=== PATIENT | female | born 1990 | race African-American/Black ===

== ENCOUNTER 2016-05-05 18:46 | Emergency (ER) | payer OTHER ==
[~2016-05-05] VITALS: Ht 157.5 cm; Wt 77.1 kg
[~2016-05-05 18:46] MED LIST: AMOXICILLIN500 M3 PO; AUGMENTIN 875 M1 TAB PO; BACTRIM DS 8001 TAB PO; BACTRIM DS TAB1 EACH PO; BLM PO; DOXYCYCLINE MO100 MG PO; IBUPROFEN800 MG PO; MACROBID100 MG PO; MEDROL DOSEPAK1 PAC PO; MOTRIN800 MG PO; PERCOCET 5-3251 EACH PO; PERCOCET MONOGRA5 MG PO; PYRIDIUM100 M1 PO; ULTRACET 325 MG1 TAB PO; VIBRAMYCIN 100100 MG PO; ZOFRAN4 M1 SL
[2016-05-05 19:20] VITALS: BP 128/85
--- NOTE | 2016-05-05 19:47 | ED THROAT/DENTAL COMPLAINT ---
History of Present Illness General Chief Complaint: Sore Throat, Dental Pain Stated Complaint: PT HAS A ABSCESS ON THE LEFT SIDE OF FACE Source: patient, old records Exam Limitations: no limitations Vital Signs & Intake/Output Vital Signs & Intake/Output Vital Signs Date Time Temp Pulse Resp B/P Pulse O2 O2 Flow FiO2 Ox Delivery Rate 05/05 1919 98.2 70 20 128/85 98 Room Air Allergies Coded Allergies: NO KNOWN ALLERGIES (05/05/16) Reconcile Medications Amoxicillin 500 MG TABLET 1 TAB PO BID abscess Amoxicillin/Potassium Clav (Augmentin 875-125 Tablet) 875 MG-125 MG TABLET 1 TAB PO BID dental Oxycodone HCl/Acetaminophen (Percocet 5-325 MG Tablet) 5 MG-325 MG TABLET 1 TAB PO TID PRN pain Oxycodone HCl/Acetaminophen (Percocet 5-325 MG Tablet) 5 MG-325 MG TABLET 1 TAB PO BID pain Sulfamethoxazole/Trimethoprim (Bactrim Ds Tablet) 800 MG-160 MG TABLET 1 TAB PO BID abscess Triage Note: TRIAGE: PT TO ER C/C ?DENTAL ABSCESS TO L SIDE OF FACE. ONSET THIS MORNING. TAKING TYLENOL WITH NO RELIEF NOTED. Triage Nurses Notes Reviewed? yes Onset: Abrupt Duration: day(s): (1), constant Timing: recent history Injury Environment: home Severity: moderate Severity Numbers: 6 Modifying Factors: Worsens With: eating. Associated Symptoms: denies : No Patient currently breastfeeds: No HPI: 26-year-old female presents to emergency room complaining of left lower dental pain for the past 1 day. The patient has a history of a cracked tooth on that side however states since this morning and has been bothering her and has noted left-sided facial swelling. She denies any difficulty swallowing cough fever or chills. She's been taking Tylenol today without improvement she is not follow- up with a dentist. She denies any other dental pain there are no other modifying factors or associated symptoms otherwise. (TOBI CANDELARIA,JOSELYN) Past History Travel History Traveled to [place] past 21 day No Medical History Any Pertinent Medical History? 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 No (JOSELYN MUELLER) Review of Systems Review of Systems Constitutional: Reports: see HPI. All Other Systems: Reviewed and Negative Comments Review of systems: See HPI, All other systems negative. Constitutional, no chills no fever, no malaise no weight loss HEENT: No visual changes no sore throat no congestion, no ear pain Cardiovascular: No chest pain , no palpitation , no orthopnea no ankle swelling Skin, no jaundice no rashes, no change in skin Respiratory: No dyspnea no cough no sputum no hemoptysis GI: No nausea no vomiting, no diarrhea, no bloating/constipation : No dysuria No hematuria, no frequency, no discharge Muscle skeletal: No joint pain, no joint swelling, no back pain, no neck pain, Neurologic: No numbness no confusion, no headache Psych: No stress Heme/endocrine: No bruising no bleeding Immunology: No lymphadenopathy (JOSELYN MUELLER) Physical Exam Physical Exam General Appearance: well developed/nourished, no apparent distress Mouth/Throat: normal mouth inspection, pharynx normal, dental tenderness Comments: Well-developed well-nourished patient in no apparent distress. Head/Face: Atraumatic, no maxillary/frontal sinus tenderness, no facial swelling Eyes: PERRL, EOMI, no conjunctival injection. Ear:External auditory canals clear, Nose: atraumatic.Normal inspection: No bleeding Throat: Moist mucous membranes.Pharynx normal. No pharyngeal erythema/exudate seen. No stridor/drooling or assymetry. No swelling or edema. Left lower dental tenderness cracked tooth no gingival swelling or abscess noted Neck: Supple, no lymphadenopathy, FROM Back: FROM, Nontender Cardiovascular: Regular rate and rhythms no murmurs rubs or gallops, Respiratory: No respiratory distress. Patient speaking in full complete sentences. Breath sounds clear to auscultation bilaterally: NO W/R/R Extremities: full range of motion Neuro: Alert and oriented x3 Skin: Warm & dry;No appreciable rash on exposed skin Psych: Mood affect normal, normal memory normal judgment. Core Measures ACS in differential dx? No Severe Sepsis Present: No Septic Shock Present: No (JOSELYN MUELLER) Progress Differential Diagnosis: aspirated tooth, carious tooth, odontogenic abscess, fatoumata-tonsillar abscess, pharyngeal for. body, stomatitis/gingivitis, strep pharyngitis, tooth fracture Plan of Care: Prescription for Augmentin Percocet provided along with dental clinic list she feels comfortable clinically for discharge (JOSELYN MUELLER) Departure Departure Time of Disposition: 1953 Disposition: HOME OR SELF CARE Condition: Stable Clinical Impression Primary Impression: Toothache Referrals: UNKNOWN (PCP/Family) Additional Instructions: augmentin as directed, percocet for breakthrough pain- use caution as ths is a narcotic and highly addictive. no driving or drinking alcohol while taking. these were sent to your pharmacy. Departure Forms: Customer Survey General Discharge Information Prescriptions: Current Visit Scripts Amoxicillin/Potassium Clav (Augmentin 875-125 Tablet) 1 TAB PO BID #14 TAB Oxycodone HCl/Acetaminophen (Percocet 5-325 MG Tablet) 1 TAB PO BID #8 TAB (JOSELYN MUELLER) PA/COVER ASSEMBLER Co-Sign Statement Statement: ED Attending supervision documentation- [] I saw and evaluated the patient. I have also reviewed all the pertinent lab results and diagnostic results. I agree with the findings and the plan of care as documented in the PA's/COVER ASSEMBLER's documentation. x I have reviewed the ED Record and agree with the PA's/COVER ASSEMBLER's documentation. [] Additions or exceptions (if any) to the PAs/COVER ASSEMBLER's note and plan are summarized below: [] (ROSALIO CLINE,SUJATHA)
[2016-05-05] MEDS ORDERED: AUGMENTIN 875-1 EACH PO (19:56)
[2016-05-05] MEDS ORDERED: PERCOCET 5-3251 EACH PO (19:56)
== END 2016-05-05 20:06 ==
LOC: ERH 18:46
DX: K08.89 Other specified disorders of teeth and supporting structures (principal)

== ENCOUNTER 2016-07-15 19:34 | Emergency (ER) | payer OTHER ==
[~2016-07-15 19:34] MED LIST changes: +AUGMENTIN 875-1 EACH PO
[2016-07-15 19:42] VITALS: BP 125/85
--- NOTE | 2016-07-15 20:16 | ED THROAT/DENTAL COMPLAINT ---
History of Present Illness General Chief Complaint: Sore Throat, Dental Pain Stated Complaint: PT HAS A ABSCESS ON THE LEFT SIDE OF THE FACE Source: patient Exam Limitations: no limitations Vital Signs & Intake/Output Vital Signs & Intake/Output Vital Signs Date Time Temp Pulse Resp B/P Pulse O2 O2 Flow FiO2 Ox Delivery Rate 07/15 1941 98.0 64 20 125/85 96 Room Air ED Intake and Output 07/16 0000 07/15 1200 Intake Total 0 Output Total Balance 0 Intake, Oral 0 Allergies Coded Allergies: NO KNOWN ALLERGIES (05/05/16) Reconcile Medications Amoxicillin 500 MG TABLET 1 TAB PO BID abscess Amoxicillin/Potassium Clav (Augmentin 875-125 Tablet) 875 MG-125 MG TABLET 1 TAB PO BID dental infection Amoxicillin/Potassium Clav (Augmentin 875-125 Tablet) 875 MG-125 MG TABLET 1 TAB PO BID dental Ibuprofen 800 MG TABLET 1 TAB PO TID PRN pain Oxycodone HCl/Acetaminophen (Percocet 5-325 MG Tablet) 5 MG-325 MG TABLET 1 TAB PO 4XDP PRN PAIN six...[id number] Oxycodone HCl/Acetaminophen (Percocet 5-325 MG Tablet) 5 MG-325 MG TABLET 1 TAB PO TID PRN pain Oxycodone HCl/Acetaminophen (Percocet 5-325 MG Tablet) 5 MG-325 MG TABLET 1 TAB PO BID pain Sulfamethoxazole/Trimethoprim (Bactrim Ds Tablet) 800 MG-160 MG TABLET 1 TAB PO BID abscess Triage Note: PER PT ABSCESS TO MOUTH X 2 MONTHS BUT TODAY CANT SLEEP. NO OBVIOUS SWELLING. LMP 3 DAYS AGO Triage Nurses Notes Reviewed? yes Onset: Gradual Duration: day(s): Timing: recent history Injury Environment: home Severity: mild Modifying Factors: Worsens With: movement. Associated Symptoms: LEFT LOWER DENTAL PAIN : No Patient currently breastfeeds: No HPI: 26 yo woman left lower jaw x 1 day. "I think I have an infection... my gum feels swollen." She notes no difficulty swallowing or speaking. She has no fever, chills, nausea, vomiting. She is otherwise well. Past History Travel History Traveled to [place] past 21 day No Medical History Any Pertinent Medical History? 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 No Review of Systems Review of Systems Constitutional: Reports: no symptoms. EENTM: Reports: no symptoms. Respiratory: Reports: no symptoms. Cardiovascular: Reports: no symptoms. GI: Reports: no symptoms. Genitourinary: Reports: no symptoms. Musculoskeletal: Reports: no symptoms. Skin: Reports: no symptoms. Neurological/Psychological: Reports: no symptoms. Hematologic/Endocrine: Reports: no symptoms. Immunologic/Allergic: Reports: no symptoms. All Other Systems: Reviewed and Negative Physical Exam Physical Exam General Appearance: well developed/nourished, mild distress Head: atraumatic, normal appearance Eyes: Bilateral: normal appearance. Ears: Bilateral: canal normal. Nose: normal inspection Mouth/Throat: normal mouth inspection, pharynx normal, dental tenderness Neck: normal inspection Core Measures ACS in differential dx? No Severe Sepsis Present: No Septic Shock Present: No Progress Differential Diagnosis: left lower jaw dental tenderness and swelling. Plan of Care: abx, pain meds... pt referred to dental. Departure Departure Disposition: HOME OR SELF CARE Condition: Stable Clinical Impression Primary Impression: Dental abscess Referrals: NAGELES KENYON APRN (PCP/Family) Departure Forms: Customer Survey General Discharge Information Prescriptions: Current Visit Scripts Oxycodone HCl/Acetaminophen (Percocet 5-325 MG Tablet) 1 TAB PO 4XDP PRN PAIN #6 TAB six...[id number] Amoxicillin/Potassium Clav (Augmentin 875-125 Tablet) 1 TAB PO BID #20 TAB Ibuprofen 1 TAB PO TID PRN pain #30 TAB
[2016-07-15] MEDS ORDERED: PERCOCET 5-3251 EACH PO (20:19)
[2016-07-15] MEDS ORDERED: IBUPROFEN800 M1 PO (20:20)
[2016-07-15] MEDS ORDERED: AUGMENTIN 875-1 EACH PO (20:20)
== END 2016-07-15 20:21 ==
LOC: ERH 19:34
DX: K04.7 Periapical abscess without sinus (principal)

== ENCOUNTER 2016-08-14 05:21 | Emergency (ER) | payer OTHER ==
[~2016-08-14] VITALS: Ht 157.5 cm; Wt 76.2 kg
[~2016-08-14 05:21] MED LIST changes: +IBUPROFEN800 M1 PO
[2016-08-14 05:43] VITALS: BP 143/97
--- NOTE | 2016-08-14 05:59 | ED THROAT/DENTAL COMPLAINT ---
History of Present Illness General Chief Complaint: Sore Throat, Dental Pain Stated Complaint: TOOTHACHE, ? ABCESS Source: patient Exam Limitations: no limitations Vital Signs & Intake/Output Vital Signs & Intake/Output Vital Signs Date Time Temp Pulse Resp B/P B/P Pulse O2 O2 Flow FiO2 Mean Ox Delivery Rate 08/14 0543 98.0 80 18 143/97 97 Room Air Allergies Coded Allergies: No Known Allergies (08/14/16) Reconcile Medications Amoxicillin 500 MG TABLET 1 TAB PO BID abscess Amoxicillin/Potassium Clav (Augmentin 875-125 Tablet) 875 MG-125 MG TABLET 1 TAB PO BID dental infection Amoxicillin/Potassium Clav (Augmentin 875-125 Tablet) 875 MG-125 MG TABLET 1 TAB PO BID dental Clindamycin HCl 150 MG CAPSULE 3 CAP PO TID INFECTION Ibuprofen 800 MG TABLET 1 TAB PO TID PRN pain Oxycodone HCl/Acetaminophen (Percocet 5-325 MG Tablet) 5 MG-325 MG TABLET 1 TAB PO Q4-6 PRN BREAKTHROUGH PAIN Oxycodone HCl/Acetaminophen (Percocet 5-325 MG Tablet) 5 MG-325 MG TABLET 1 TAB PO 4XDP PRN PAIN six...[id number] Oxycodone HCl/Acetaminophen (Percocet 5-325 MG Tablet) 5 MG-325 MG TABLET 1 TAB PO TID PRN pain Oxycodone HCl/Acetaminophen (Percocet 5-325 MG Tablet) 5 MG-325 MG TABLET 1 TAB PO BID pain Sulfamethoxazole/Trimethoprim (Bactrim Ds Tablet) 800 MG-160 MG TABLET 1 TAB PO BID abscess Triage Note: PT TO ED FOR L SIDED TOOTHACHE/ABCESS X "FEW WEEKS" WAS PRESCRIBED ABX, FINISHED ABX LAST WEEK. PAIN 10/10. DENIES FEVERS. Triage Nurses Notes Reviewed? yes Onset: Abrupt Duration: week(s): (1) Timing: recent history Injury Environment: home Severity: mild, moderate No Modifying Factors: none Associated Symptoms: facial swelling : No Patient currently breastfeeds: No HPI: This is a 26-year-old female who presents to the ER for chief complaint of persistent left jaw pain and swelling. She is status post a course of antibiotics that finished one and half weeks ago. She denies any fevers. She states she was waiting for the swelling go down her jaw to follow-up with dental to have the tooth extracted. She's been taking ibuprofen and tramadol with minimal relief. Last use ibuprofen at 4:00 this morning. Past History Travel History Traveled to [place] past 21 day No Medical History Any Pertinent Medical History? 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 No Review of Systems Review of Systems Constitutional: Denies: chills, fever. EENTM: Reports: mouth pain, tooth pain. Respiratory: Denies: hemoptysis, short of breath. Cardiovascular: Denies: chest pain. GI: Denies: abdominal pain. Genitourinary: Reports: no symptoms. Musculoskeletal: Reports: no symptoms. Skin: Reports: no symptoms. Neurological/Psychological: Reports: no symptoms. Hematologic/Endocrine: Denies: bruising, bleeding, polyuria, polydipsia. Immunologic/Allergic: Reports: no symptoms. All Other Systems: Reviewed and Negative Physical Exam Physical Exam General Appearance: well developed/nourished, alert, awake, mild distress Head: atraumatic, normal appearance Eyes: Bilateral: PERRL. Ears: Bilateral: canal normal, Tympanic normal. Nose: normal inspection Mouth/Throat: POOR DENTITION, NO ABSCESS LEFT MAXILLA TENDERNESS AND SWELLING Neck: normal inspection, supple, trachea midline Cardiovascular/Respiratory: normal breath sounds Neurologic/Psych: no motor/sensory deficits, awake, alert, oriented x 3 Core Measures ACS in differential dx? No Severe Sepsis Present: No Septic Shock Present: No Progress Differential Diagnosis: carious tooth, Ludwigs angina, odontogenic abscess, tooth fracture Plan of Care: ABX, DENTAL FOLLOW UP Departure Departure Time of Disposition: 603 Disposition: HOME OR SELF CARE Condition: Stable Clinical Impression Primary Impression: Infected dental carries Referrals: ANGELES KENYON APRN (PCP/Family) Additional Instructions: Take the antibiotic and pain medication as directed. Continue ibuprofen as needed. Follow-up with list of the dental clinics provided. Departure Forms: Customer Survey General Discharge Information Prescriptions: Current Visit Scripts Clindamycin HCl 3 CAP PO TID #63 CAP Oxycodone HCl/Acetaminophen (Percocet 5-325 MG Tablet) 1 TAB PO Q4-6 PRN BREAKTHROUGH PAIN #10 TAB
[2016-08-14] MEDS ORDERED: CLINDAMYCIN HC150 M1 PO (06:04)
[2016-08-14] MEDS ORDERED: PERCOCET 5-3251 EACH PO (06:04)
== END 2016-08-14 06:08 ==
LOC: ERH 05:21
DX: K02.9 Dental caries, unspecified (principal)

== ENCOUNTER 2016-10-04 10:17 | Emergency (ER) | payer OTHER ==
[~2016-10-04] VITALS: Ht 157.5 cm; Wt 77.1 kg
[~2016-10-04 10:17] MED LIST changes: +CLINDAMYCIN HC150 M1 PO
[2016-10-04 10:19] VITALS: BP 144/86
[2016-10-04] MEDS ORDERED: PERCOCET 5-3251 EACH PO (10:51)
[2016-10-04] MEDS ORDERED: AMOXICILLIN875 M1 PO (10:51)
[2016-10-04] MEDS ORDERED: IBUPROFEN600 M1 PO (10:51)
--- NOTE | 2016-10-04 11:02 | ED THROAT/DENTAL COMPLAINT ---
History of Present Illness General Chief Complaint: Sore Throat, Dental Pain Stated Complaint: DENATL PAIN Source: patient, old records Exam Limitations: no limitations Vital Signs & Intake/Output Vital Signs & Intake/Output Vital Signs Date Time Temp Pulse Resp B/P B/P Pulse O2 O2 Flow FiO2 Mean Ox Delivery Rate 10/04 1019 97.5 60 18 144/86 100 Room Air Allergies Coded Allergies: No Known Allergies (08/14/16) Reconcile Medications Amoxicillin 500 MG TABLET 1 TAB PO BID abscess Amoxicillin 875 MG TABLET 1 TAB PO BID dental caries Amoxicillin/Potassium Clav (Augmentin 875-125 Tablet) 875 MG-125 MG TABLET 1 TAB PO BID dental infection Amoxicillin/Potassium Clav (Augmentin 875-125 Tablet) 875 MG-125 MG TABLET 1 TAB PO BID dental Clindamycin HCl 150 MG CAPSULE 3 CAP PO TID INFECTION Ibuprofen 800 MG TABLET 1 TAB PO TID PRN pain Ibuprofen 600 MG TABLET 1 TAB PO Q6PRN PRN pain with food Oxycodone HCl/Acetaminophen (Percocet 5-325 MG Tablet) 5 MG-325 MG TABLET 1 TAB PO Q4-6 PRN BREAKTHROUGH PAIN Oxycodone HCl/Acetaminophen (Percocet 5-325 MG Tablet) 5 MG-325 MG TABLET 1 TAB PO 4XDP PRN PAIN six...[id number] Oxycodone HCl/Acetaminophen (Percocet 5-325 MG Tablet) 5 MG-325 MG TABLET 1 TAB PO TID PRN pain Oxycodone HCl/Acetaminophen (Percocet 5-325 MG Tablet) 5 MG-325 MG TABLET 1 TAB PO BID pain Oxycodone HCl/Acetaminophen (Percocet 5-325 MG Tablet) 5 MG-325 MG TABLET 1 TAB PO Q6P PRN severe pain Sulfamethoxazole/Trimethoprim (Bactrim Ds Tablet) 800 MG-160 MG TABLET 1 TAB PO BID abscess Triage Note: PT TO ED FOR DENTAL PAIN SINCE LAST NIGHT. Triage Nurses Notes Reviewed? yes Onset: Gradual Duration: week(s): Timing: recent history Severity: moderate Modifying Factors: Worsens With: cold therapy, eating. : No Patient currently breastfeeds: No HPI: 26-year-old female presents to emergency department complaining of dental pain. Patient states that she has had chronic dental pain on her left lower jaw due to broken tooth and she was seen a dentist for this however was not able to have tooth pulled due to infection. Now she is complaining of right upper tooth pain and states that she has another broken tooth since this week. She states that pain is significantly worse when she eats or drinks especially any cold liquids. She denies fevers, chills, swollen gums, swallowing problems, cough, sore throat. She states that Motrin does not relieve her pain. (AKHIL EDDY PA-C) Past History Travel History Traveled to [place] past 21 day No Medical History Any Pertinent Medical History? 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 No (AKHIL EDDY PA-C) Review of Systems Review of Systems Constitutional: Reports: no symptoms. EENTM: Reports: see HPI. Respiratory: Reports: no symptoms. Cardiovascular: Reports: no symptoms. GI: Reports: no symptoms. Genitourinary: Reports: no symptoms. Musculoskeletal: Reports: no symptoms. Skin: Reports: no symptoms. Neurological/Psychological: Reports: no symptoms. Hematologic/Endocrine: Reports: no symptoms. Immunologic/Allergic: Reports: no symptoms. All Other Systems: Reviewed and Negative (AKHIL EDDY PA-C) Physical Exam Physical Exam General Appearance: well developed/nourished, no apparent distress, alert, awake Head: atraumatic, normal appearance Eyes: Bilateral: normal appearance, EOMI. Ears: Bilateral: other (HEARING IS GROSSLY NORMAL). Nose: normal inspection Mouth/Throat: pharynx normal, SIGNIFICANT CAVITY OF LEFT LOWER MOLAR AND SMALLER CAVITY OF RIGHT UPPER MOLAR, TONSILS WITHOUT ERYTHEMA OR EXUDATE, GINGIVA IS NONTENDER, NO SWELLING Neck: normal inspection, supple, full range of motion Cardiovascular/Respiratory: no respiratory distress Back: normal inspection, normal range of motion Neurologic/Psych: awake, alert, oriented x 3 Skin: intact, normal color Core Measures ACS in differential dx? No Severe Sepsis Present: No Septic Shock Present: No (AKHIL EDDY PA-C) Progress Differential Diagnosis: aspirated tooth, carious tooth, Ludwigs angina, odontogenic abscess, fatoumata-tonsillar abscess, strep pharyngitis, tooth fracture Plan of Care: Patient is in no acute distress, she is nontoxic appearing, no evidence of significant infection on physical exam. The patient is requesting pain medication. She has recently been to the emergency department for similar complaints with requests for pain medication. Patient was discussed with Dr. Madera. The patient will take full course of antibiotics for prevention of dental infection. She'll follow-up with her dentist for further care and possible tooth extraction, she states she will call today to make an appointment. The patient is in agreement with the plan of care. (AKHIL EDDY PA-C) Departure Departure Disposition: HOME OR SELF CARE Condition: Stable Clinical Impression Primary Impression: Chronic dental pain Referrals: ANGELES KENYON APRN (PCP/Family) Additional Instructions: Take Motrin as prescribed as needed for your dental pain. Take full course of antibiotics to prevent further dental infection. Call today to make an appointment with your dentist for further dental care. Let your primary care doctor know that you were seen and evaluated here. Follow-up with your primary care doctor this week. Departure Forms: Customer Survey General Discharge Information Prescriptions: Current Visit Scripts Amoxicillin 1 TAB PO BID #20 TAB Ibuprofen 1 TAB PO Q6PRN PRN pain #50 TAB with food Oxycodone HCl/Acetaminophen (Percocet 5-325 MG Tablet) 1 TAB PO Q6P PRN severe pain #15 TAB (AKHIL EDDY PA-C) PA/PUNCH HAND Co-Sign Statement Statement: ED Attending supervision documentation- I saw and evaluated the patient. I have also reviewed all the pertinent lab results and diagnostic results. I agree with the findings and the plan of care as documented in the PA's/PUNCH HAND's documentation. X I have reviewed the ED Record and agree with the PA's/PUNCH HAND's documentation. [] Additions or exceptions (if any) to the PAs/PUNCH HAND's note and plan are summarized below: [] (ROSALIO CLINE,SUJATHA)
== END 2016-10-04 11:15 ==
LOC: ERH 10:17
DX: G89.29 Other chronic pain (principal); K08.89 Other specified disorders of teeth and supporting structures

== ENCOUNTER 2017-08-01 07:36 | Emergency (ER) | payer OTHER ==
[~2017-08-01] VITALS: Ht 157.5 cm; Wt 70.3 kg
[~2017-08-01 07:36] MED LIST changes: +AMOXICILLIN875 M1 PO; +GUAIFEN-CODEIN118 M1 PO; +IBUPROFEN600 M1 PO; +TRAMADOL HCL50 M1 PO; +ULTRAM50 M1 PO; +ZITHROMAX250 M2 PO
[2017-08-01 07:39] VITALS: BP 134/85
[2017-08-01] MEDS ORDERED: IBUPROFEN600 M1 PO (07:52)
[2017-08-01] MEDS ORDERED: BROMFED DM COU118 M1 PO (07:52)
--- NOTE | 2017-08-01 07:54 | ED THROAT/DENTAL COMPLAINT ---
History of Present Illness General Chief Complaint: Upper Respiratory Sx/Fever Stated Complaint: COUGH,SORE THROAT,CHEST CONGESTION Source: patient Exam Limitations: no limitations Vital Signs & Intake/Output Vital Signs & Intake/Output Vital Signs Date Time Temp Pulse Resp B/P B/P Pulse O2 O2 Flow FiO2 Mean Ox Delivery Rate 08/01 0739 96.4 87 20 134/85 99 Room Air Allergies Coded Allergies: No Known Allergies (08/14/16) Reconcile Medications Amoxicillin/Potassium Clav (Augmentin 875-125 Tablet) 875 MG-125 MG TABLET 1 TAB PO BID dental infection Azithromycin (Zithromax) 250 MG TABLET 1 DP PO AD uri 2 the first day followed by 1 for days 2-5 Codeine Phosphate/Guaifenesi (Guaifen-Codeine 100-10 MG/5 Ml) 10 MG-100 MG/5 ML LIQUID 10 ML PO Q6HR PRN COUGH Ibuprofen 600 MG TABLET 1 TAB PO Q6PRN PRN pain with food Ibuprofen 600 MG TABLET 1 TAB PO TID PRN pain with food Sulfamethoxazole/Trimethoprim (Bactrim Ds Tablet) 800 MG-160 MG TABLET 1 TAB PO BID INFECTION Tramadol HCl (Ultram) 50 MG TABLET 1-2 TAB PO Q6PRN PRN severe pain Tramadol HCl 50 MG TABLET 1 TAB PO BIDP PRN severe pain Triage Note: PT TO ED C/O SORE THROAT SINCE YESTERDAY. AFEBRILE. C/O FEELING SOB. RA SATS 99%, NO OBVIOUS RESP DISTRESS NOTED. Triage Nurses Notes Reviewed? yes Onset: Gradual Duration: hour(s):, constant, continues in ED, getting worse Severity: severe : No Patient currently breastfeeds: No HPI: Patient presents for evaluation of a cough sore throat and chest congestion and nasal congestion beginning last night. Patient is also experiencing a sharp right-sided chest pain with coughing. She denies any associated fever, phlegm production, rash, vomiting, diarrhea, ill contacts or recent travel. Although patient denies shortness of breath she states sometimes she has trouble breathing because of the pain in her throat. She tried NyQuil without significant relief. Past History Travel History Traveled to [place] past 21 day No Medical History Any Pertinent Medical History? see below for history Neurological: NONE EENT: NONE Cardiovascular: NONE Respiratory: NONE Gastrointestinal: NONE Hepatic: NONE Renal: NONE Musculoskeletal: NONE Psychiatric: NONE Endocrine: NONE Blood Disorders: NONE Cancer(s): NONE [employer]/Reproductive: NONE History of MRSA: No History of VRE: No History of CDIFF: No Surgical History Surgical History: appendectomy Psychosocial History Who do you live with Sister Services at Home None What is your primary language [place] Tobacco Use: Never used ETOH Use: denies use Illicit Drug Use: denies illicit drug use Family History Hx Contributory? No Review of Systems Review of Systems Constitutional: Reports: no symptoms. EENTM: Reports: see HPI. Respiratory: Reports: see HPI. Cardiovascular: Reports: no symptoms. GI: Reports: no symptoms. Genitourinary: Reports: no symptoms. Musculoskeletal: Reports: no symptoms. Skin: Reports: no symptoms. Neurological/Psychological: Reports: no symptoms. Hematologic/Endocrine: Reports: no symptoms. Immunologic/Allergic: Reports: no symptoms. All Other Systems: Reviewed and Negative Physical Exam Physical Exam Mouth/Throat: see below Comments: Gen.: Well-nourished, well-developed, no acute respiratory distress. Head: Normocephalic, atraumatic. Eyes: Normal inspection bilaterally Ears: Normal inspection bilaterally Nose: Normal inspection Throat/mouth : Moist mucosa, no oropharyngeal erythema soft tissue swelling or exudates, managing secretions well Neck: Supple, full range of motion, no goiter, neutral position Heart: Regular rate and rhythm, no murmurs rubs or gallops Lungs: Clear to auscultation bilaterally with normal air entry Chest: Nontender Back: Normal range of motion Abdomen: Soft, nontender, nondistended, normal bowel sounds Extremities: Normal range of motion grossly, equal radial pulses, no cyanosis clubbing or edema Neurologic: Cranial nerves grossly intact, speech is clear Skin: warm and dry, no rashes of the face or extremities Psychiatric: Calm, cooperative, no apparent delusions or hallucinations Lymphatic: Mildly tender anterior cervical lymphadenopathy Core Measures ACS in differential dx? No Sepsis Present: No Sepsis Focused Exam Completed? No Progress Differential Diagnosis: epiglottitis, odontogenic abscess, fatoumata-tonsillar abscess, strep pharyngitis, viral syndrome Plan of Care: Symptomatic care Departure Departure Disposition: HOME OR SELF CARE Condition: Stable Clinical Impression Primary Impression: Viral pharyngitis Referrals: Unknown (PCP/Family) Additional Instructions: Ibuprofen 600 mg every 6 hours as needed for sore throat pain and fever or muscle aches chills or headache. Bromfed as needed for congestion or cough. Maintain a good fluid intake. Follow-up with your primary care physician if not improved in the next 7-10 days. Return if any concerns or sudden worsening. Thank you for choosing the [facility] for your care. It was a pleasure to serve you today. Kaushal Nevarez M.D. [facility] Departure Forms: Customer Survey General Discharge Information Prescriptions: Current Visit Scripts Ibuprofen 1 TAB PO Q6P PRN fever,pain #20 TAB with food Brompheniramine/Pseudoephed/Dm (Bromfed Dm Cough Syrup) 5-10 ML PO Q6 PRN PRN cough/congestion #120 ML
[2017-08-20] MEDS ORDERED: PERCOCET 5-3251 EACH PO (15:26)
[2017-08-20] MEDS ORDERED: AUGMENTIN 875-1 EACH PO (15:26)
[2017-11-10] MEDS ORDERED: ANBESOL9 G1 TOP (04:09)
[2017-11-10] MEDS ORDERED: IBUPROFEN600 M1 PO (04:09)
[2017-11-10] MEDS ORDERED: PERCOCET 5-3251 EACH PO (04:09)
[2017-11-10] MEDS ORDERED: AMOXICILLIN500 M3 PO (04:09)
[2017-12-08] MEDS ORDERED: TRAMADOL HCL50 M1 PO (09:24)
[2017-12-08] MEDS ORDERED: KEFLEX500 M1 PO (09:24)
== END 2017-08-01 07:57 ==
LOC: ERH 07:36
DX: J02.9 Acute pharyngitis, unspecified (principal); R07.9 Chest pain, unspecified

== ENCOUNTER 2017-11-03 08:49 | Emergency (ER) | payer OTHER ==
[~2017-11-03] VITALS: Ht 157.5 cm; Wt 70.3 kg
[~2017-11-03 08:49] MED LIST changes: +BROMFED DM COU118 M1 PO
[2017-11-03 08:53] VITALS: BP 146/88
[2017-11-10] MEDS ORDERED: PERCOCET 5-3251 EACH PO (04:09)
[2017-11-10] MEDS ORDERED: ANBESOL9 G1 TOP (04:09)
[2017-11-10] MEDS ORDERED: AMOXICILLIN500 M3 PO (04:09)
[2017-11-10] MEDS ORDERED: IBUPROFEN600 M1 PO (04:09)
== END 2017-11-03 11:01 | disposition admitted as inpatient to this hospital (09) ==
LOC: ERH 08:49
DX: L02.419 Cutaneous abscess of limb, unspecified (principal)